=== PATIENT | female | born 1965 | race Caucasian/White ===

== ENCOUNTER 2023-08-22 13:17 | Day surgery (SDC) | payer MEDICARE | END 2023-08-22 15:20 | disposition home or self-care (01) | LOC: SDC-PAIN 13:17 | PROVIDERS: ATTEND Psychiatry & Neurology Pain Medicine | DX: Z53.8 Procedure and treatment not carried out for other reasons (principal) ==

== ENCOUNTER 2024-01-09 11:20 | Day surgery (SDC) | payer MEDICARE ==
[2024-01-09] MEDS ORDERED: BUPIVACAINE 0.5% VIAL IJ ONE (11:21)
[2024-01-09] MEDS ORDERED: DIPRIVAN 200 MG/20 ML IV ONE (12:58)
[2024-01-09] MEDS ORDERED: Lactated Ringers 1,000 ML IV ONE (14:02)
--- NOTE | 2024-01-09 15:06 | XRAY ---
Indication: Bilateral L4-S1 MBB Intraoperative fluoroscopy provided for 8 seconds. Single digital spot image submitted for interpretation demonstrates posterior needle tips projecting over expected left and right L4-S1 nerve roots. Correlate with intraoperative findings/report.
--- NOTE | 2024-01-09 15:20 | XRAY ---
8 seconds of fluoroscopy was used in surgery for a bilateral L4-S1 MBB.
== END 2024-01-09 13:38 | disposition home or self-care (01) ==
LOC: SDC-PAIN 11:20
PROVIDERS: ATTEND Psychiatry & Neurology Pain Medicine
DX: M47.816 Spondylosis without myelopathy or radiculopathy, lumbar region (principal)
CPT/HCPCS: 64493; 64494; 72020; 77002; J2704

== ENCOUNTER 2024-03-12 13:14 | Day surgery (SDC) | payer MEDICARE ==
[2024-03-12] MEDS ORDERED: BUPIVACAINE 0.5% VIAL IJ ONE (13:15)
[2024-03-12] MEDS ORDERED: Depo-Medrol 40 MG/ML IM ONE (13:15)
[2024-03-12] MEDS ORDERED: XYLOCAINE-MPF 1% 5ML SDV IJ ONE (13:15)
[2024-03-12] MEDS ORDERED: Lactated Ringers 1,000 ML IV ONE (14:09)
[2024-03-12] MEDS ORDERED: DIPRIVAN 200 MG/20 ML IV ONE (14:37)
--- NOTE | 2024-03-12 14:58 | XRAY ---
Indication: Left L4-S1 RFA. Intraoperative fluoroscopy provided for 27 seconds. 3 digital spot images submitted for interpretation demonstrates posterior needle tips projecting over the expected left L4-S1 nerve roots. Correlate with intraoperative findings/report.
--- NOTE | 2024-03-12 15:24 | XRAY ---
27 seconds of fluoroscopy was used in surgery for a left L4-S1 RFA.
== END 2024-03-12 15:05 | disposition home or self-care (01) ==
LOC: SDC-PAIN 13:14
PROVIDERS: ATTEND Psychiatry & Neurology Pain Medicine
DX: M47.816 Spondylosis without myelopathy or radiculopathy, lumbar region (principal)
CPT/HCPCS: 64635; 64636; 72100; 77002; J1010; J2704

== ENCOUNTER 2024-03-26 11:53 | Day surgery (SDC) | payer MEDICARE ==
[2024-03-26] MEDS ORDERED: Depo-Medrol 40 MG/ML IM ONE (11:54)
[2024-03-26] MEDS ORDERED: BUPIVACAINE 0.5% VIAL IJ ONE (11:54)
[2024-03-26] MEDS ORDERED: XYLOCAINE-MPF 1% 5ML SDV IJ ONE (11:54)
[2024-03-26] MEDS ORDERED: DIPRIVAN 200 MG/20 ML IV ONE ×2 (12:57→13:05)
[2024-03-26] MEDS ORDERED: Lactated Ringers 1,000 ML IV ONE (13:08)
--- NOTE | 2024-03-26 14:59 | XRAY ---
Indication: Right L4-S1 RFA. Intraoperative fluoroscopy provided for 20 seconds. 3 digital spot image submitted for interpretation demonstrates posterior needle tips projecting over the expected right L4-S1 nerve roots. Correlate with intraoperative findings/report.
--- NOTE | 2024-03-26 17:20 | XRAY ---
20 seconds of fluoroscopy was used in surgery for a right L4-S1 RFA.
== END 2024-03-26 13:33 | disposition home or self-care (01) ==
LOC: SDC-PAIN 11:53
PROVIDERS: ATTEND Psychiatry & Neurology Pain Medicine
DX: M47.816 Spondylosis without myelopathy or radiculopathy, lumbar region (principal)
CPT/HCPCS: 64635; 64636; 72100; 77002; J1010; J2704